=== PATIENT | male | born 1950 | race Caucasian/White ===

== ENCOUNTER 2017-02-18 12:59 | Inpatient (IN) | payer MEDICARE, OTHER ==
[~2017-02-18] VITALS: Ht 175.3 cm; Wt 90.2 kg
[2017-02-18 13:42] LABS: Basophils # (auto) 0.1 uL; Basophils % (auto) 0.7 % (0.0-2.0); CONDITION Y; Eosinophils # (auto) 0.3 uL; Eosinophils % (auto) 2.8 % (0.0-7.0); Hematocrit 35.8 % (41.0-53.0); Lymphocytes # (auto) 2.5 uL; Lymphocytes % (auto) 21.4 % (10.0-50.0); Mean Corpuscular Hemoglobin 32.7 pg (28.0-32.0); Mean Corpuscular Hgb Conc. 33.6 g/dL (32.0-36.0); Mean Corpuscular Volume 97.3 fL (80.0-100.0); Mean Platelet Volume 8.1 fL (7.4-10.4); Monocytes # (auto) 0.7 uL; Monocytes % (auto) 6.3 % (0.0-12.0); Neutrophils % (auto) 68.8 % (37.0-80.0); Platelet Count (auto) 386 10^3/uL (140-450); Red Cell Distribution Width 15.4 % (11.6-16.0); White Blood Cell 11.7 10^3/uL (4.4-10.8)
[2017-02-18 13:55] LABS: Albumin 4.1 g/dL (3.4-5.0); Anion Gap 8 (5-15); Aspartate Aminotransferase 23 U/L (15-37); BUN/Creatinine Ratio 15.4; Blood Urea Nitrogen 51 mg/dL (7-18); Calcium 9.2 mg/dL (8.5-10.1); Carbon Dioxide 27 mmol/L (21-32); Chloride 102 mmol/L (98-107); GFR African American 24 mL/min; GFR Non-African American 20 mL/min; Glucose 107 mg/dL (74-106); Magnesium 1.8 mg/dL (1.6-2.6); Potassium 4.7 mmol/L (3.5-5.1); Sodium 137 mmol/L (136-145)
[2017-02-18 14:00] LABS: Alkaline Phosphatase 289 U/L (45-117); Bilirubin, Total 0.6 mg/dL (0.2-1.0); Total Protein 8.7 g/dL (6.4-8.2)
[2017-02-18] MEDS ORDERED: SODIUM CHLORIDE 0.9% 500 ML IVB ONE (14:13)
[2017-02-18] MEDS ORDERED: PROMETHAZINE HCL 25 MG/ML 1ML IV ONE (14:15)
[2017-02-18] MEDS ORDERED: PANTOPRAZOLE 40 MG/10 ML VIAL IV ONE (14:15)
[2017-02-18 14:41] LABS: Amylase 91 U/L (25-115)
[2017-02-18 14:46] LABS: INR 0.99 (0.9-1.15); Partial Thromboplastin Time 25.9 sec (22.64-33.71); Prothrombin Time 10.8 sec (9.37-12.3)
[2017-02-18] MEDS: InsuLIN REG 1unit/0.01ml Soln (100units/ml) SC SCH ×2 (17:00→22:02)
[2017-02-18] MEDS ORDERED: cefTRIAXone 1GM/50ML D5W 50 ML IV ONE (17:00)
[2017-02-18] MEDS ORDERED: DEXTROSE (50%) 50ML SYRG IV PRN (17:00)
[2017-02-18] MEDS ORDERED: SODIUM CHLORIDE 0.9% 1,000 ML IV ONE (17:15)
[2017-02-18] MEDS ORDERED: MORPHINE SULF INJ 2 MG/ML SYRINGE 1ML IV PRN ×2 (17:15)
[2017-02-18] MEDS ORDERED: NITROGLYCERIN 0.4 MG SL TAB SL PRN (17:15)
[2017-02-18] MEDS ORDERED: HYDROcodone-ACET 5/325MG TAB PO PRN (17:15)
[2017-02-18] MEDS ORDERED: TEMAZEPAM 15 MG CAP PO PRN (17:15)
[2017-02-18] MEDS ORDERED: ONDANSETRON HCL 4 MG/2 ML VIAL IV PRN (17:15)
[2017-02-18] MEDS ORDERED: DOCUSATE SOD 100 MG CAP PO PRN (17:15)
[2017-02-18] MEDS: ACCU-CHEK COMFORT CURVE STRIP VI SCH ×2 (17:16→22:01)
[2017-02-18] MEDS ORDERED: LINEZOLID 600MG/300ML 300 ML IV SCH (18:00)
[2017-02-18] MEDS: SODIUM CHLORIDE 0.9% 1,000 ML IV SCH (19:10)
[2017-02-18] MEDS ORDERED: CYAN100L PO (19:48)
[2017-02-18] MEDS ORDERED: CHOL20007 PO (19:49)
[2017-02-18] MEDS ORDERED: LEVO112T4 PO (19:50)
[2017-02-18] MEDS ORDERED: BUPR200T8 PO (19:52)
[2017-02-18] MEDS ORDERED: LIOT5TAB PO (19:54)
[2017-02-18] MEDS ORDERED: ALLO300T79 PO (19:55)
[2017-02-18 20:05] VITALS: BP 135/79
[2017-02-18] MEDS: FAMOTIDINE 20 MG TAB PO SCH (22:00)
[2017-02-18 22:54] VITALS: BP 135/79
[2017-02-19] MEDS: SODIUM CHLORIDE 0.9% 1,000 ML IV SCH ×3 (01:26→15:38)
[2017-02-19 04:55] VITALS: BP 117/63
[2017-02-19] MEDS: InsuLIN REG 1unit/0.01ml Soln (100units/ml) SC SCH ×2 (06:23→11:30)
[2017-02-19] MEDS: ACCU-CHEK COMFORT CURVE STRIP VI SCH ×2 (06:24→12:13)
[2017-02-19] MEDS ORDERED: cefTRIAXone 1GM/50ML D5W 50 ML IV SCH (09:00)
[2017-02-19 09:36] VITALS: BP 129/73
[2017-02-19] MEDS: MULTIPLE VITAMIN TAB PO SCH (10:00)
[2017-02-19] MEDS: FAMOTIDINE 20 MG TAB PO SCH ×2 (10:00→21:43)
[2017-02-19] MEDS ORDERED: LEVOTHYROXINE SODIUM 112 MCG TAB PO ONE (12:30)
[2017-02-19] MEDS ORDERED: ALLOPURINOL 100 MG TAB PO ONE (12:45)
[2017-02-19 13:00] VITALS: BP 147/75
[2017-02-19 17:00] VITALS: BP 122/63
[2017-02-19] MEDS: buPROPion HCL 100 MG TAB PO SCH (18:32)
[2017-02-19 22:00] VITALS: BP 117/53
[2017-02-19 23:16] LABS: Urine Bilirubin Negative (Negative); Urine Blood 1+ /uL (Negative); Urine Color Yellow (Yellow); Urine Glucose Normal (Normal); Urine Ketone Negative (Negative); Urine Nitrite Negative (Negative); Urine RBC 12 /hpf (0 - 3); Urine Urobilinogen Normal (Negative); Urine WBC Clumps PRESENT /hpf (None Seen); Urine pH 6.5 (5.0-8.0)
[2017-02-20] MEDS: SODIUM CHLORIDE 0.9% 1,000 ML IV SCH ×2 (02:02→10:34)
[2017-02-20 05:00] VITALS: BP 117/60
[2017-02-20 05:07] LABS: Thyroxine (T4) 3.7 ug/dL (4.5-12.0)
[2017-02-20 06:09] LABS: Basophils # (auto) 0 uL; Basophils % (auto) 0.5 % (0.0-2.0); CONDITION Y; Eosinophils # (auto) 0.3 uL; Eosinophils % (auto) 4.4 % (0.0-7.0); Hematocrit 29.6 % (41.0-53.0); Lymphocytes # (auto) 1.8 uL; Lymphocytes % (auto) 24.8 % (10.0-50.0); Mean Corpuscular Hemoglobin 32.9 pg (28.0-32.0); Mean Corpuscular Hgb Conc. 33.6 g/dL (32.0-36.0); Mean Corpuscular Volume 97.7 fL (80.0-100.0); Mean Platelet Volume 8.1 fL (7.4-10.4); Monocytes # (auto) 0.5 uL; Monocytes % (auto) 6.6 % (0.0-12.0); Neutrophils # (auto) 4.7 uL; Neutrophils % (auto) 63.7 % (37.0-80.0); Platelet Count (auto) 283 10^3/uL (140-450); Red Cell Distribution Width 15.3 % (11.6-16.0); White Blood Cell 7.3 10^3/uL (4.4-10.8)
[2017-02-20] MEDS: buPROPion HCL 100 MG TAB PO SCH ×2 (06:12→18:07)
[2017-02-20] MEDS: ACETAMINOPHEN 325 MG TAB PO PRN ×2 (06:14→20:34)
[2017-02-20 06:35] LABS: Potassium 3.9 mmol/L (3.5-5.1)
[2017-02-20 06:40] LABS: BUN/Creatinine Ratio 17.4; Calcium 7.5 mg/dL (8.5-10.1); Uric Acid 6.1 mg/dL (3.5-7.2)
[2017-02-20] MEDS ORDERED: LEVOTHYROXINE SODIUM 112 MCG TAB PO SCH (07:00)
[2017-02-20 09:00] VITALS: BP 125/65
[2017-02-20] MEDS: FAMOTIDINE 20 MG TAB PO SCH ×2 (10:31→22:00)
[2017-02-20] MEDS: ALLOPURINOL 100 MG TAB PO SCH (10:31)
[2017-02-20] MEDS: MULTIPLE VITAMIN TAB PO SCH (10:32)
[2017-02-20] MEDS ORDERED: cefTRIAXone 1GM/50ML D5W 50 ML IV ONE (11:15)
[2017-02-20] MEDS ORDERED: LEVOTHYROXINE SODIUM 100 MCG/5 ML INJ IV ONE (11:15)
[2017-02-20] MEDS: SOD CHL 0.45% 1,000 ML IV SCH ×2 (12:11→23:39)
[2017-02-20 13:00] VITALS: BP 146/71
[2017-02-20 17:00] VITALS: BP 142/77
[2017-02-20 22:00] VITALS: BP 146/69
[2017-02-20] MEDS: PSYLLIUM PWD 6 GM PKG PO SCH (22:00)
[2017-02-21 05:07] VITALS: BP 133/73
[2017-02-21] MEDS: buPROPion HCL 100 MG TAB PO SCH (06:21)
[2017-02-21 06:51] LABS: Calcium 8.2 mg/dL (8.5-10.1); Potassium 4.1 mmol/L (3.5-5.1)
[2017-02-21 06:53] LABS: BUN/Creatinine Ratio 11.8
[2017-02-21] MEDS ORDERED: LEVOTHYROXINE SODIUM 100 MCG TAB PO SCH (07:00)
[2017-02-21] MEDS: SOD CHL 0.45% 1,000 ML IV SCH (07:15)
[2017-02-21] MEDS ORDERED: cefTRIAXone 1GM/50ML D5W 50 ML IV SCH (09:00)
[2017-02-21] MEDS: FAMOTIDINE 20 MG TAB PO SCH (09:23)
[2017-02-21] MEDS: MULTIPLE VITAMIN TAB PO SCH (09:24)
[2017-02-21] MEDS: ALLOPURINOL 100 MG TAB PO SCH (09:24)
[2017-02-21] MEDS: PSYLLIUM PWD 6 GM PKG PO SCH (09:24)
[2017-02-21 09:40] VITALS: BP 159/72
[2017-02-21] MEDS ORDERED: LEVOTHYROXINE SODIUM 100 MCG/5 ML INJ IV SCH (10:00)
[2017-02-21 11:51] VITALS: BP 159/72
[2017-02-21 12:11] VITALS: BP 146/78
[2017-02-21 12:30] VITALS: BP 146/78
== END 2017-02-21 13:04 | disposition home or self-care (01) | DRG 643 ==
LOC: EDBD 12:59 → ER 13:09 → TELE 13:10 → TELE-EAST 20:18
PROVIDERS: ADMIT Internal Medicine; ATTEND Internal Medicine
DX: E03.9 Hypothyroidism, unspecified (principal); N17.0 Acute kidney failure with tubular necrosis; N13.30 Unspecified hydronephrosis; N18.4 Chronic kidney disease, stage 4 (severe); E11.21 Type 2 diabetes mellitus with diabetic nephropathy; K80.20 Calculus of gallbladder without cholecystitis without obstruction; Z93.2 Ileostomy status; D63.8 Anemia in other chronic diseases classified elsewhere; E11.22 Type 2 diabetes mellitus with diabetic chronic kidney disease; E78.5 Hyperlipidemia, unspecified; E86.0 Dehydration; I12.9 Hypertensive chronic kidney disease with stage 1 through stage 4 chronic kidney disease, or unspecified chronic kidney disease; K43.9 Ventral hernia without obstruction or gangrene; K57.30 Diverticulosis of large intestine without perforation or abscess without bleeding; M10.9 Gout, unspecified; I70.0 Atherosclerosis of aorta; I70.8 Atherosclerosis of other arteries; R00.1 Bradycardia, unspecified; F41.9 Anxiety disorder, unspecified; Z79.899 Other long term (current) drug therapy; Z80.42 Family history of malignant neoplasm of prostate; Z80.6 Family history of leukemia; Z82.49 Family history of ischemic heart disease and other diseases of the circulatory system; Z83.3 Family history of diabetes mellitus; Z85.51 Personal history of malignant neoplasm of bladder; Z93.6 Other artificial openings of urinary tract status
CPT/HCPCS: 36415; 71010; 74176; 80048; 80053; 81001; 82150; 82570; 82962; 83036; 83605; 83690; 83735; 84100; 84156; 84300; 84443; 84484; 84550; 85025; 85610; 85730; 87040; 87086; 93005; 93306; 94761; 96361; 96365; 96375; C9113; J0696; J1815; J3490